=== PATIENT | male | born 1965 | race Caucasian/White ===

== ENCOUNTER 2019-04-20 13:28 | Emergency (ER) | payer OTHER, SELFPAY ==
[2019-04-20 13:35] VITALS: BP 117/77; PULSE 94; RESP 16; TEMP 36.7; O2SAT 96
--- NOTE | 2019-04-20 13:54 | ED.NAVMDI ---
HPI - Nausea/Vomiting/Diarrhea General Chief complaint: Upper Respiratory Infection Stated complaint: CHILLS Time Seen by Provider: 04/20/19 13:51 Source: patient and RN notes reviewed Mode of arrival: ambulatory Limitations: no limitations History of Present Illness HPI Narrative: Pt is a 53 y/o male who is a nonsmoker that presents to the with c/o 3 episodes of runny, watery diarrhea that started this morning. He states that on Wednesday he started getting tactile fever, chills after work and he got home and took a hot shower. Pt states that he has been having sweats and chills since Wednesday and has been at home trying to let it pass. Pt reports associated hematochezia that turned his toilet bowl dark red. He states that his ABD starts gurlging and he knows that he needs to have a BM, but he denies any ABD pain.. He states that yesterday he had pain behind his eyes but he does not have that pain today. Pt has not been to work since Wednesday. Today, he does not have sweats or chills. Pt notes that he had a colonscopy last year and had some polyps removed but he was not told he had diverticulosis. Pt denies sore throat, ear ache, cough, rhinorrhea, vomiting, flank pain, back pain, dizziness, weakness, lightheadedness, or SOB. He states that his appetite has been normal and he has been taking theraflu and eating soup. Pt is not on any blood thinners and he denies foreign travel or being around anyone with the same Sx. He has not taken any medicine to alleviate his diarrhea. Pt does not have a PCP. Pt was advised to go to the ED to get his blood count checked d/t his hematochezia. Pt declined. He requests a work note since he has not been to work since Wednesday (3 days ago). elicited complaint: diarrhea Onset (ago): hour(s) (this morning) Description of diarrhea: blood and watery Associated nausea: No Associated abdominal pain: No Relieving factors: none Associated symptoms: other (hematochezia) Treatment prior to arrival: none Related Data Allergies Allergy/AdvReac Type Severity Reaction Status Date / Time No Known Allergies Allergy Unverified 04/20/19 13:33 Review of Systems Review of Systems: Narrative: General/Constitutional: No weight loss,fever, chills, sweats, weakness Eyes: N0: Redness,discharge Ears/Nose/Throat: No: Epistaxis,ear discharge, sore throat, ear ache, rhinorrhea Respiratory: Denies: Hemoptysis, cough, SOB Gastrointestinal: Reports diarrhea and hematochezia. Denies vomiting or ABD pain Skin: No Lumps, eruption Neurologic: No Focal Weakness, Sz, lightheadedness, dizziness Musculoskeletal: Denies flank pain or back pain Hematologic: Denies: Petechiae/Purpura Psychiatric: No: Suicidal ideation All Other Systems: Reviewed and Negative [facility] Past Medical History Medical History (Updated 04/20/19 @ 14:15 by Panda Flood) No significant past medical history Surgical History Surgical History (Updated 04/20/19 @ 14:15 by Panda Flodo) H/O colonoscopy with polypectomy Social History Social History (Updated 04/20/19 @ 14:18 by Panda Flood) Smoking status: Never smoker Comments At time of signature, agree with nursing past medical, surgical, social and family history. There is no relevant family history pertinent to the presenting complaint Exam Narrative: Exam Narrative: General Appearance: Well appearing, No distress EYE: PERRLA, Conjunctiva clear Ears: External ear normal Nose: Normal nose Mouth/Throat: Normal appearing, Normal lips Neck: Supple Respiratory: Airway patent, No respiratory distress Cardiovascular: RRR Abdomen: Soft, Non-tender, No massess, No organomegaly (no rebound/ surgical signs) Musculoskeletal: Full ROM Skin: Warm, Dry Neurological: A&O x3, CN II-X intact Psychiatric: Normal mood, Normal affect Course Vital Signs Vital signs: Vital Signs Temperature 98.1 F 04/20/19 13:35 Pulse Rate 94 04/20/19 13:35 Respiratory Rate 16 04/20/19 13:35
== END 2019-04-20 14:23 | disposition left against medical advice (07) ==
PROVIDERS: Emergency Provider Emergency Medicine
DX: K62.5 Hemorrhage of anus and rectum (principal); R19.7 Diarrhea, unspecified
CPT/HCPCS: 90471; 99213; G0463

== ENCOUNTER 2021-03-26 12:31 | Emergency (ER) | payer OTHER, SELFPAY ==
--- NOTE | 2021-03-26 12:34 | ED.URI ---
HPI - URI/Sore Throat General Chief Complaint: Upper Respiratory Infection Stated Complaint: Flu sx Time Seen by Provider: 03/26/21 12:55 Source: patient and RN notes reviewed Mode of arrival: ambulatory Limitations: no limitations History of Present Illness HPI Narrative: 55-year-old male presents with concern for body aches, fever, headache that started yesterday. Reports symptoms ease slightly with TheraFlu. He denies any known sick contacts. Has not been vaccinated for Covid. MD elicited complaint: other (Headache, body aches) Related Data Allergies Allergy/AdvReac Type Severity Reaction Status Date / Time No Known Allergies Allergy Unverified 03/26/21 13:18 Review of Systems Review of Systems: CONSTITUTIONAL: Reports malaise, fatigue, fever. EYES: Denies visual changes, redness, or discharge. ENT: Denies rhinorrhea, congestion, sinus pain, otalgia and sore throat. CARDIOVASCULAR: Denies chest pain, palpitations, or edema. RESPIRATORY: Reports cough. Denies dyspnea. GASTROINTESTINAL: Denies abdominal pain, nausea, vomiting, diarrhea SKIN: Denies rash or itching. MUSCULOSKELETAL: Reports myalgia. NEUROLOGIC: Reports headache. All systems reviewed & are unremarkable except as noted in HPI and below PMFSH Past Medical History Medical History (Updated 03/26/21 @ 13:19 by Patrica Tomlin NP) No significant past medical history Surgical History Surgical History (Updated 04/20/19 @ 14:15 by Panda Flood) H/O colonoscopy with polypectomy Social History Social History (Updated 04/20/19 @ 14:18 by Panda Flood) Smoking status: Never smoker Comments At time of signature, agree with nursing past medical, surgical, social and family history. There is no relevant family history pertinent to the presenting complaint Exam Narrative: GENERAL: Well-appearing, well-nourished, and in no acute distress. HEAD: Normocephalic EYES: PERRLA, conjunctivae clear ENT: Nares clear. Mucous membranes moist. TM pearly barlow with sharp light reflex bilaterally; no tragal tenderness. Oropharynx not erythematous without lesions. Tonsils not enlarged and without exudate, no drooling, no hoarseness, no trismus, uvula midline. NECK: Supple. No lymphadenopathy CHEST: Clear to auscultation, breath sounds equal. No wheezing, rhonchi, rales, or stridor. No respiratory distress, speaks in full sentences. HEART: Regular rate and rhythm. No murmur heard. SKIN: Warm, dry, no rash. NEURO: Alert and oriented x3. PSYCH: Normal mood and affect Course Course Emergency Course: Patient is aware of diagnosis, understands and agrees to treatment plan. Anticipatory guidance given. Patient agrees to follow-up as directed and is aware of reasons to seek care at the emergency department. Portions of this record may have been created with voice recognition software Level of Care: Express Care Visit Vital Signs Vital signs: Reviewed. MDM - URI/Sore Throat MDM Narrative Medical decision making narrative: Differential diagnosis considered: Britton virus, strep pharyngitis, allergic rhinitis, upper respiratory tract infection, sinusitis, rhinosinusitis, nasopharyngitis. viral pharyngitis, otitis media, otitis externa, pneumonia, bronchitis, viral cough syndrome, viral syndrome, and influenza. Exam findings show no acute concerns or changes; patient is non-toxic appearing and is in no distress. Patient is appropriate for outpatient treatment and follow-up. Lab Data Attestation: I reviewed the patient's lab results. Critical Care Time Critical Care Time Critical Care Time: No Discharge Plan Discharge Clinical Impression: Influenza B Patient Disposition: Home, Self-Care Condition: Stable Instructions: Influenza (ED) Additional Instructions: -Take strict precautions to prevent the spread of your virus. Be diligent about covering your cough (even when you are alone) and washing your hands frequently. -You may contagious until you have been
[2021-03-26 12:39] VITALS: BP 136/64; PULSE 88; RESP 18; TEMP 36.6; O2SAT 98
== END 2021-03-26 13:24 | disposition home or self-care (01) ==
PROVIDERS: Emergency Provider Nurse Practitioner
DX: J10.1 Influenza due to other identified influenza virus with other respiratory manifestations (principal); Z20.822 Contact with and (suspected) exposure to COVID-19
CPT/HCPCS: 87426; 87804; 99213; C9803; G0463